=== PATIENT | female | born 1935 | race Caucasian/White ===

== ENCOUNTER 2019-10-17 10:17 | Emergency (ER) | payer MEDICARE ==
[~2019-10-17] VITALS: Ht 157.5 cm; Wt 56.8 kg
[2019-10-17] MEDS ORDERED: METH2.5 PO (10:26)
[2019-10-17] MEDS ORDERED: LEVO88TA4 PO (10:26)
[2019-10-17] MEDS ORDERED: ASPI-728 PO (10:26)
[2019-10-17] MEDS ORDERED: FOLI0.4T14 PO (10:26)
[2019-10-17] MEDS ORDERED: ISOS30TA6 PO (10:26)
[2019-10-17] MEDS ORDERED: CALC0.5C PO (10:26)
[2019-10-17] MEDS ORDERED: AMLO5TAB9 PO (10:26)
[2019-10-17] MEDS ORDERED: METO25XL PO (10:26)
[2019-10-17] MEDS ORDERED: ATOR40TA28 PO (10:26)
[2019-10-17 10:50] LABS: BASOPHILS % (AUTO) 0.7 % (0.0-2.0); EOSINOPHILS % (AUTO) 1.7 % (1.0-6.0); HEMATOCRIT 30.7 % (36-46); LYMPHOCYTES # (AUTO) 0.2 K/uL (1.0-4.8); LYMPHOCYTES % (AUTO) 4.9 % (22.0-44.0); MEAN CORPUSCULAR HGB CONC 32.6 G/dL (31.0-37.0); MEAN CORPUSCULAR VOLUME 98 fL (80-100); MONOCYTES # (AUTO) 0.5 K/uL (0.1-1.0); NEUTROPHILS # (AUTO) 3.9 K/uL (1.8-7.7); NEUTROPHILS % (AUTO) 81.7 % (40.0-70.0); PLATELET COUNT (AUTO) 197 K/uL (150-450); RED BLOOD CELL COUNT(AUTO) 3.13 MIL/uL (4.00-5.20); RED CELL DISTRIBUTION WIDTH 19.6 % (11.5-14.5)
[2019-10-17 11:02] LABS: CREATININE 1.3 mg/dL (0.60-1.30); POTASSIUM 4.3 mmol/L (3.5-5.1)
[2019-10-17 11:08] LABS: ALBUMIN 3.9 g/dL (3.4-5.0); BILIRUBIN,TOTAL 0.4 mg/dL (0.1-1.0)
[2019-10-17 11:49] LABS: APPEARANCE,URINE CLEAR (CLEAR); BILIRUBIN,URINE NEGATIVE (NEGATIVE); GLUCOSE, URINE (UA) NEGATIVE (NEGATIVE); KETONES,URINE NEGATIVE (NEGATIVE); LEUKOCYTE ESTERASE ,URINE TRACE (NEGATIVE); NITRATE,URINE NEGATIVE (NEGATIVE); OCCULT BLOOD,URINE NEGATIVE (NEGATIVE); PROTEIN,URINE SEE CONFIRM (NEGATIVE); UROBILINOGEN,URINE 0.2 mg/dL (<=1.0)
[2019-10-17 12:01] LABS: BACTERIA,URINE None Seen /HPF (None Seen); RBC,URINE None Seen /HPF (0-2); RENAL EPITHELIAL CELLS,URINE Rare /LPF (None Seen); SULFOSALICYLIC ACID,URINE 2+ (Negative)
[2019-10-17 12:25] VITALS: BP 144/74
[2019-10-17] MEDS ORDERED: LIDOCAINE 5% TRANSDERMAL PATCH TD ONE (13:00)
[2019-10-17] MEDS ORDERED: MethylPREDNISolone SOD SUCC 125 MG/2 ML VIAL IM ONE (13:00)
== END 2019-10-17 14:55 | disposition home or self-care (01) ==
LOC: EMS 10:18
DX: M06.9 Rheumatoid arthritis, unspecified (principal); R10.12 Left upper quadrant pain; M54.9 Dorsalgia, unspecified; I11.9 Hypertensive heart disease without heart failure; E78.00 Pure hypercholesterolemia, unspecified; Z88.1 Allergy status to other antibiotic agents; Z79.82 Long term (current) use of aspirin
CPT/HCPCS: 36415; 74176; 80053; 81001; 83690; 85025; 99284; J2930